=== PATIENT | female | born 1965 | race Caucasian/White ===

== ENCOUNTER 2019-01-30 15:55 | Emergency (ER) | payer OTHER ==
[~2019-01-30] VITALS: Ht 154.9 cm; Wt 51.7 kg
[2019-01-30 16:12] VITALS: Ht 154.9 cm; Wt 51.7 kg
[2019-01-30 19:43] VITALS: BP 132/51
== END 2019-01-30 19:43 | disposition home or self-care (01) ==
LOC: ED 15:55
DX: L02.414 Cutaneous abscess of left upper limb (principal); I10 Essential (primary) hypertension; E11.9 Type 2 diabetes mellitus without complications
CPT/HCPCS: J2001

== ENCOUNTER 2019-02-02 13:26 | Emergency (ER) | payer OTHER | END 2019-02-02 15:35 | disposition left against medical advice (07) | LOC: ED 13:26 | DX: Z53.21 Procedure and treatment not carried out due to patient leaving prior to being seen by health care provider (principal) ==